=== PATIENT | female | born 1955 | race Asian ===

== ENCOUNTER 2020-03-16 12:16 | Inpatient (IN) | payer MEDICAID, OTHER, SELFPAY ==
[~2020-03-16] VITALS: Ht 154.9 cm; Wt 64.9 kg
[2020-03-16] MEDS ORDERED: methylPREDNISolone SOD SUCC 125 MG/2 ML VL IV ONE (12:45)
[2020-03-16] MEDS ORDERED: AZITHROMYCIN 500MG/ 250ML 250 ML IV ONE (13:15)
[2020-03-16] MEDS ORDERED: ASCORBIC ACID 500 MG TAB PO ONE (13:15)
[2020-03-16] MEDS ORDERED: CHOLECALCIFEROL (VITD3) 2,000 UNIT CAP/TAB PO ONE (13:15)
[2020-03-16 13:57] LABS: Basophils # (auto) 0 10 ^3/uL (0-0.2); Basophils % (auto) 0.2 % (0.0-2.0); Eosinophils # (auto) 0 10 ^3/uL (0-0.8); Eosinophils % (auto) 0.3 % (0.0-7.0); Hematocrit 42.7 % (36.0-46.0); Hemoglobin 14.7 g/dL (12.2-16.2); Lymphocytes # (auto) 0.6 10 ^3/uL (0.4-5.4); Lymphocytes % (auto) 5.1 % (10.0-50.0); Mean Corpuscular Hemoglobin 30.7 pg (28.0-32.0); Mean Corpuscular Hgb Conc. 34.4 g/dL (32.0-36.0); Mean Corpuscular Volume 89.2 fL (80.0-100.0); Monocytes # (auto) 0.8 10 ^3/uL (0-1.3); Monocytes % (auto) 7.1 % (0.0-12.0); Neutrophils # (auto) 9.7 10 ^3/uL (1.6-8.6); Neutrophils % (auto) 87.3 % (37.0-80.0); Platelet Count (auto) 243 10^3/uL (140-450); Red Blood Cells 4.79 10^6/uL (4.0-5.20); Red Cell Distribution Width 13.6 % (11.8-14.3); White Blood Cell 11.1 10^3/uL (4.4-10.8)
[2020-03-16] MEDS ORDERED: MORPHINE SULF INJ 2 MG/ML SYRINGE 1ML IV PRN ×3 (14:00→22:00)
[2020-03-16] MEDS ORDERED: NITROGLYCERIN 0.4 MG SL TAB SL PRN ×2 (14:00→22:00)
[2020-03-16] MEDS ORDERED: dilTIAZem 25 MG/5 ML VIAL IV ONE ×3 (14:00→18:15)
[2020-03-16 14:19] LABS: Alanine Aminotransferase 38 U/L (13-56); Albumin 2.5 g/dL (3.4-5.0); Anion Gap 7 (5-15); Blood Urea Nitrogen 7 mg/dL (7-18); Calcium 8.5 mg/dL (8.5-10.1); Carbon Dioxide 28 mmol/L (21-32); Chloride 100 mmol/L (98-107); Glucose 122 mg/dL (74-106); Potassium 3.2 mmol/L (3.5-5.1); Sodium 135 mmol/L (136-145)
[2020-03-16 14:21] LABS: Lactic Acid w/Reflex 2.2 mmol/L (0.4-2.0)
[2020-03-16 14:28] LABS: Alkaline Phosphatase 93 U/L (45-117); Aspartate Aminotransferase 45 U/L (15-37); BUN/Creatinine Ratio 8.8; Bilirubin, Total 2.1 mg/dL (0.2-1.0); GFR African American 93 mL/min; GFR Non-African American 77 mL/min; Total Protein 8.5 g/dL (6.4-8.2)
[2020-03-16] MEDS ORDERED: ATEN25TA PO (14:32)
[2020-03-16 14:42] LABS: CRP High Sensitivity > 19.0 mg/dL (< 0.3)
[2020-03-16] MEDS ORDERED: REMDESIVIR PER PHARMACY 0 ML IV SCH ×2 (15:30→22:00)
[2020-03-16] MEDS ORDERED: ADENOSINE 6 MG/2 ML INJ IV ONE ×2 (18:00→18:02)
[2020-03-16] MEDS ORDERED: METOPROLOL TARTRATE 1MG/1ML-5ML VIAL IV PRN ×2 (18:00)
[2020-03-16] MEDS ORDERED: MAGNESIUM SULFATE 1GM/100ML 100 ML IV ONE (18:15)
[2020-03-16] MEDS ORDERED: POTASSIUM CHLORIDE 40 MEQ, LIDOCAINE 1% (LOCAL ANESTH.) 4 ML in SODIUM CHL 0.9% 250 ML IV ONE (18:15)
[2020-03-16] MEDS ORDERED: ALBUMIN 25% 100 ML IV ONE (18:15)
[2020-03-16] MEDS ORDERED: dilTIAZem HCL 60 MG TAB PO ONE (18:15)
[2020-03-16] MEDS ORDERED: ENOXAPARIN SOD 80 MG/0.8ML SYRINGE SC ONE (18:15)
[2020-03-16] MEDS ORDERED: DexAMETHasone INJECTION 10 MG in D5W 5% 50 ML IV ONE (18:15)
[2020-03-16] MEDS ORDERED: IOHEXOL 350 MG/ML 100ML IJ ONE (18:53)
[2020-03-16] MEDS ORDERED: REMDESIVIR 200 MG in NS 210ml LOADING DOSE ADULT IV ONE (20:00)
[2020-03-16] MEDS ORDERED: ALUM & MAG HYDROX-SIMETH LIQ(MAALOX) 30 ML PO PRN (22:00)
[2020-03-16] MEDS ORDERED: ONDANSETRON HCL 4 MG/2 ML VIAL IV PRN (22:00)
[2020-03-16] MEDS ORDERED: LORazepam 0.5 MG TAB PO PRN (22:00)
[2020-03-16] MEDS ORDERED: DOCUSATE SOD 100 MG CAP PO PRN (22:00)
[2020-03-17] VITALS: BP 102/59
[2020-03-17 00:13] LABS: Basophils # (auto) 0 10 ^3/uL (0-0.2); Basophils % (auto) 0.1 % (0.0-2.0); Eosinophils # (auto) 0 10 ^3/uL (0-0.8); Hematocrit 38.3 % (36.0-46.0); Lymphocytes # (auto) 0.3 10 ^3/uL (0.4-5.4); Lymphocytes % (auto) 4.6 % (10.0-50.0); Mean Corpuscular Hemoglobin 30.8 pg (28.0-32.0); Mean Corpuscular Volume 90.5 fL (80.0-100.0); Monocytes # (auto) 0.3 10 ^3/uL (0-1.3); Monocytes % (auto) 3.8 % (0.0-12.0); Neutrophils # (auto) 6.4 10 ^3/uL (1.6-8.6); Neutrophils % (auto) 91.5 % (37.0-80.0); Platelet Count (auto) 196 10^3/uL (140-450); Red Blood Cells 4.24 10^6/uL (4.0-5.20); Red Cell Distribution Width 13.4 % (11.8-14.3)
[2020-03-17] MEDS: ALBUMIN 25% 100 ML IV SCH ×3 (00:41→17:07)
[2020-03-17] MEDS: SODIUM CHLORIDE 0.9% 1,000 ML IV SCH ×2 (00:44→14:40)
[2020-03-17 01:25] LABS: Albumin 2.2 g/dL (3.4-5.0); Calcium 8.2 mg/dL (8.5-10.1); Magnesium 2.3 mg/dL (1.6-2.6); Potassium 3.2 mmol/L (3.5-5.1)
[2020-03-17 01:37] LABS: Bilirubin, Total 1.1 mg/dL (0.2-1.0); Total Protein 7.2 g/dL (6.4-8.2)
[2020-03-17 02:53] LABS: CRP High Sensitivity 20.08 mg/dL (< 0.3)
[2020-03-17] MEDS: DOXYCYCLINE 100MG/250ML 250 ML IV SCH ×3 (02:55→21:21)
[2020-03-17 04:00] VITALS: BP 102/59
[2020-03-17] MEDS: FUROSEMIDE 20 MG/2 ML VIAL IV SCH ×2 (05:34→17:06)
[2020-03-17 06:56] LABS: Basophils # (auto) 0 10 ^3/uL (0-0.2); Eosinophils # (auto) 0 10 ^3/uL (0-0.8); Hematocrit 33.4 % (36.0-46.0); Hemoglobin 11.4 g/dL (12.2-16.2); Lymphocytes # (auto) 0.5 10 ^3/uL (0.4-5.4); Lymphocytes % (auto) 6.7 % (10.0-50.0); Mean Corpuscular Hemoglobin 30.5 pg (28.0-32.0); Mean Corpuscular Hgb Conc. 34.1 g/dL (32.0-36.0); Mean Corpuscular Volume 89.4 fL (80.0-100.0); Monocytes # (auto) 0.4 10 ^3/uL (0-1.3); Monocytes % (auto) 4.8 % (0.0-12.0); Neutrophils # (auto) 6.7 10 ^3/uL (1.6-8.6); Neutrophils % (auto) 88.5 % (37.0-80.0); Nucleated Red Blood Cells % 0.1 %; Platelet Count (auto) 194 10^3/uL (140-450); Red Blood Cells 3.73 10^6/uL (4.0-5.20); Red Cell Distribution Width 13.6 % (11.8-14.3); White Blood Cell 7.5 10^3/uL (4.4-10.8)
[2020-03-17 07:19] LABS: INR 1.03 (0.9-1.15); Partial Thromboplastin Time 29.9 sec (23.0-31.2)
[2020-03-17 07:22] LABS: Albumin 3.3 g/dL (3.4-5.0); Calcium 8.5 mg/dL (8.5-10.1); Magnesium 2.6 mg/dL (1.6-2.6); Potassium 3.4 mmol/L (3.5-5.1)
[2020-03-17 07:26] LABS: BUN/Creatinine Ratio 11.4; Bilirubin, Total 1.4 mg/dL (0.2-1.0); Phosphorus 1.4 mg/dL (2.5-4.90); Total Protein 7.6 g/dL (6.4-8.2)
[2020-03-17 08:00] VITALS: BP 124/70
[2020-03-17] MEDS: BUDESONIDE (INHALATION) 180 MCG IH IN SCH ×2 (10:00→19:41)
[2020-03-17] MEDS ORDERED: ENOXAPARIN SOD 80 MG/0.8ML SYRINGE SC SCH (10:00)
[2020-03-17] MEDS ORDERED: IVERMECTIN 3 MG TAB PO ONE (10:00)
[2020-03-17] MEDS: DexAMETHasone SOD PHOS 10MG/1ML VIAL INJ IV SCH (10:34)
[2020-03-17] MEDS: FAMOTIDINE (10MG/ML) 2ML VL IV SCH (10:35)
[2020-03-17] MEDS: ZINC SULFATE 220mg CAP or TAB PO SCH (10:35)
[2020-03-17] MEDS: CHOLECALCIFEROL (VITD3) 2,000 UNIT CAP/TAB PO SCH (10:36)
[2020-03-17] MEDS: METOPROLOL SUCCINATE XL 50 MG TAB PO SCH (10:36)
[2020-03-17] MEDS: ASCORBIC ACID 1,000 MG TAB PO SCH (10:36)
[2020-03-17] MEDS ORDERED: IOHEXOL 350 MG/ML 100ML IJ ONE (11:31)
[2020-03-17] MEDS ORDERED: POTASSIUM CHL 20 Meq TABLET PO ONE (12:45)
[2020-03-17] MEDS: REMDESIVIR 100mg 100 MG in SODIUM CHL 0.9% 230 ML IV SCH (15:17)
[2020-03-17 16:00] VITALS: BP 120/70
[2020-03-17] MEDS: ALBUTEROL SULF HFA 90MCG INH 200DOSE IN PRN (19:41)
[2020-03-17] MEDS: ENOXAPARIN SOD 60 MG/0.6 ML SYRINGE SC SCH (21:21)
[2020-03-18] VITALS: BP 118/72
[2020-03-18 05:43] LABS: Calcium 8.7 mg/dL (8.5-10.1); Potassium 3.6 mmol/L (3.5-5.1)
[2020-03-18 05:50] LABS: Albumin 3.2 g/dL (3.4-5.0); BUN/Creatinine Ratio 21.3; Bilirubin, Total 0.8 mg/dL (0.2-1.0); Total Protein 7.1 g/dL (6.4-8.2)
[2020-03-18] MEDS: FUROSEMIDE 20 MG/2 ML VIAL IV SCH ×2 (06:33→17:22)
[2020-03-18] MEDS: SODIUM CHLORIDE 0.9% 1,000 ML IV SCH (06:34)
[2020-03-18 08:00] VITALS: BP 127/67
[2020-03-18] MEDS: ALBUTEROL SULF HFA 90MCG INH 200DOSE IN PRN ×2 (08:30→19:58)
[2020-03-18] MEDS: BUDESONIDE (INHALATION) 180 MCG IH IN SCH ×2 (08:30→19:58)
[2020-03-18] MEDS: DOXYCYCLINE 100MG/250ML 250 ML IV SCH ×2 (09:24→21:50)
[2020-03-18] MEDS: ENOXAPARIN SOD 60 MG/0.6 ML SYRINGE SC SCH ×2 (09:25→21:50)
[2020-03-18] MEDS: ASCORBIC ACID 1,000 MG TAB PO SCH (09:25)
[2020-03-18] MEDS: ZINC SULFATE 220mg CAP or TAB PO SCH (09:25)
[2020-03-18] MEDS: METOPROLOL SUCCINATE XL 50 MG TAB PO SCH (09:26)
[2020-03-18] MEDS: CHOLECALCIFEROL (VITD3) 2,000 UNIT CAP/TAB PO SCH (09:28)
[2020-03-18] MEDS: DexAMETHasone SOD PHOS 10MG/1ML VIAL INJ IV SCH (09:28)
[2020-03-18] MEDS: FAMOTIDINE (10MG/ML) 2ML VL IV SCH (09:28)
[2020-03-18 14:06] LABS: Hematocrit 34.7 % (36.0-46.0); Hemoglobin 11.5 g/dL (12.2-16.2); Mean Corpuscular Hemoglobin 30.2 pg (28.0-32.0); Mean Corpuscular Hgb Conc. 33.3 g/dL (32.0-36.0); Mean Corpuscular Volume 90.7 fL (80.0-100.0); Platelet Count (auto) 291 10^3/uL (140-450); Red Blood Cells 3.82 10^6/uL (4.0-5.20); Red Cell Distribution Width 13.7 % (11.8-14.3); White Blood Cell 15.7 10^3/uL (4.4-10.8)
[2020-03-18 14:10] LABS: Basophils % (manual) 0 (0.0-2.0); Blast Cells 0; Eosinophils % (manual) 0 (0-7); Metamyelocytes % 0; Myelocytes % 0; Promyelocytes % 0; Reactive Lymphocytes 0
[2020-03-18] MEDS: REMDESIVIR 100mg 100 MG in SODIUM CHL 0.9% 230 ML IV SCH (14:49)
[2020-03-18 15:09] LABS: Band Neutrophils % (manual) 26; Lymphocytes % (manual) 9 (10.0-50.0); Monocytes % (manual) 2 (0-12)
[2020-03-18 16:00] VITALS: BP 142/82
[2020-03-19] VITALS: BP 134/74
[2020-03-19 05:31] LABS: Basophils # (auto) 0 10 ^3/uL (0-0.2); Basophils % (auto) 0.1 % (0.0-2.0); Eosinophils # (auto) 0 10 ^3/uL (0-0.8); Eosinophils % (auto) 0.3 % (0.0-7.0); Hematocrit 37.9 % (36.0-46.0); Hemoglobin 12.8 g/dL (12.2-16.2); Lymphocytes # (auto) 1.2 10 ^3/uL (0.4-5.4); Lymphocytes % (auto) 9.7 % (10.0-50.0); Mean Corpuscular Hemoglobin 30.3 pg (28.0-32.0); Mean Corpuscular Hgb Conc. 33.9 g/dL (32.0-36.0); Mean Corpuscular Volume 89.5 fL (80.0-100.0); Monocytes # (auto) 1.3 10 ^3/uL (0-1.3); Monocytes % (auto) 10.5 % (0.0-12.0); Neutrophils # (auto) 9.5 10 ^3/uL (1.6-8.6); Neutrophils % (auto) 79.4 % (37.0-80.0); Nucleated Red Blood Cells % 0.1 %; Platelet Count (auto) 342 10^3/uL (140-450); Red Blood Cells 4.23 10^6/uL (4.0-5.20); Red Cell Distribution Width 13.6 % (11.8-14.3); White Blood Cell 11.9 10^3/uL (4.4-10.8)
[2020-03-19 05:58] LABS: Potassium 3.1 mmol/L (3.5-5.1)
[2020-03-19 06:10] LABS: Albumin 3.1 g/dL (3.4-5.0); BUN/Creatinine Ratio 23.9; Bilirubin, Total 0.8 mg/dL (0.2-1.0); Calcium 8.6 mg/dL (8.5-10.1); Total Protein 7.4 g/dL (6.4-8.2)
[2020-03-19] MEDS: FUROSEMIDE 20 MG/2 ML VIAL IV SCH (06:10)
[2020-03-19] MEDS: ALBUTEROL SULF HFA 90MCG INH 200DOSE IN PRN ×2 (07:56→20:02)
[2020-03-19] MEDS: BUDESONIDE (INHALATION) 180 MCG IH IN SCH ×2 (07:56→20:01)
[2020-03-19 08:00] VITALS: BP 148/77
[2020-03-19] MEDS: DOXYCYCLINE 100MG/250ML 250 ML IV SCH ×2 (09:52→21:24)
[2020-03-19] MEDS: FAMOTIDINE (10MG/ML) 2ML VL IV SCH (09:52)
[2020-03-19] MEDS: DexAMETHasone SOD PHOS 10MG/1ML VIAL INJ IV SCH (09:52)
[2020-03-19] MEDS: ZINC SULFATE 220mg CAP or TAB PO SCH (09:52)
[2020-03-19] MEDS: METOPROLOL SUCCINATE XL 50 MG TAB PO SCH (09:53)
[2020-03-19] MEDS: ASCORBIC ACID 1,000 MG TAB PO SCH (09:53)
[2020-03-19] MEDS: CHOLECALCIFEROL (VITD3) 2,000 UNIT CAP/TAB PO SCH (09:55)
[2020-03-19] MEDS: ENOXAPARIN SOD 60 MG/0.6 ML SYRINGE SC SCH ×2 (09:55→21:24)
[2020-03-19] MEDS: POTASSIUM CHL 20MEQ/100ML 100 ML IV SCH ×2 (14:20→16:26)
[2020-03-19 16:00] VITALS: BP 132/78
[2020-03-19] MEDS: SODIUM CHLORIDE 0.9% 1,000 ML IV SCH ×2 (17:55)
[2020-03-19] MEDS: REMDESIVIR 100mg 100 MG in SODIUM CHL 0.9% 230 ML IV SCH (17:55)
[2020-03-19] MEDS: FUROSEMIDE 20 MG TAB PO SCH (17:57)
[2020-03-20] VITALS: BP 98/68
[2020-03-20] MEDS: FUROSEMIDE 20 MG TAB PO SCH ×3 (05:58→17:23)
[2020-03-20] MEDS: SODIUM CHLORIDE 0.9% 1,000 ML IV SCH (06:25)
[2020-03-20 06:55] LABS: INR 1.2 (0.9-1.15); Potassium 3.4 mmol/L (3.5-5.1)
[2020-03-20 07:03] LABS: Basophils # (auto) 0 10 ^3/uL (0-0.2); Basophils % (auto) 0.1 % (0.0-2.0); Eosinophils # (auto) 0 10 ^3/uL (0-0.8); Hematocrit 40.1 % (36.0-46.0); Hemoglobin 13.5 g/dL (12.2-16.2); Lymphocytes # (auto) 1.2 10 ^3/uL (0.4-5.4); Lymphocytes % (auto) 10.5 % (10.0-50.0); Mean Corpuscular Hgb Conc. 33.6 g/dL (32.0-36.0); Mean Corpuscular Volume 89.4 fL (80.0-100.0); Monocytes # (auto) 1.2 10 ^3/uL (0-1.3); Monocytes % (auto) 10.3 % (0.0-12.0); Neutrophils # (auto) 9.3 10 ^3/uL (1.6-8.6); Neutrophils % (auto) 79.1 % (37.0-80.0); Platelet Count (auto) 405 10^3/uL (140-450); Red Blood Cells 4.49 10^6/uL (4.0-5.20); Red Cell Distribution Width 13.8 % (11.8-14.3); White Blood Cell 11.8 10^3/uL (4.4-10.8)
[2020-03-20 07:04] LABS: BUN/Creatinine Ratio 25.7; Bilirubin, Total 0.9 mg/dL (0.2-1.0); Calcium 9.1 mg/dL (8.5-10.1); Magnesium 2.3 mg/dL (1.6-2.6); Phosphorus 4.3 mg/dL (2.5-4.90); Total Protein 7.3 g/dL (6.4-8.2)
[2020-03-20 08:00] VITALS: BP 140/76
[2020-03-20] MEDS: BUDESONIDE (INHALATION) 180 MCG IH IN SCH ×2 (09:25→19:20)
[2020-03-20] MEDS: ZINC SULFATE 220mg CAP or TAB PO SCH (09:47)
[2020-03-20] MEDS: DexAMETHasone SOD PHOS 10MG/1ML VIAL INJ IV SCH (09:47)
[2020-03-20] MEDS: DOXYCYCLINE 100MG/250ML 250 ML IV SCH ×2 (09:47→21:51)
[2020-03-20] MEDS: FAMOTIDINE (10MG/ML) 2ML VL IV SCH ×2 (09:47→21:51)
[2020-03-20] MEDS: ENOXAPARIN SOD 60 MG/0.6 ML SYRINGE SC SCH (09:48)
[2020-03-20] MEDS: ASCORBIC ACID 1,000 MG TAB PO SCH (09:48)
[2020-03-20] MEDS: POTASSIUM CHL 20 Meq TABLET PO SCH (09:48)
[2020-03-20] MEDS: CHOLECALCIFEROL (VITD3) 2,000 UNIT CAP/TAB PO SCH (09:48)
[2020-03-20] MEDS: METOPROLOL SUCCINATE XL 50 MG TAB PO SCH (09:52)
[2020-03-20] MEDS ORDERED: AMIODARONE HCL 150 MG in D5W 5% 100 ML IV ONE (10:00)
[2020-03-20] MEDS ORDERED: AMIODARONE 450mg/250ml AE 250 ML IV SCH (10:15)
[2020-03-20] MEDS ORDERED: POTASSIUM CHL 20 Meq TABLET PO ONE (10:15)
[2020-03-20] MEDS: ALBUTEROL SULF HFA 90MCG INH 200DOSE IN PRN ×2 (11:05→19:20)
[2020-03-20] MEDS ORDERED: POTASSIUM CHL 20MEQ/100ML 100 ML IV ONE (14:15)
[2020-03-20] MEDS: REMDESIVIR 100mg 100 MG in SODIUM CHL 0.9% 230 ML IV SCH (15:00)
[2020-03-20 16:00] VITALS: BP 118/88
[2020-03-20] MEDS: AMIODARONE 450mg/250ml AE 250 ML IV SCH (16:15)
[2020-03-20] MEDS: APIXABAN 5 MG TAB PO SCH (21:51)
[2020-03-21] VITALS: BP 118/71
[2020-03-21] MEDS: AMIODARONE 450mg/250ml AE 250 ML IV SCH (02:20)
[2020-03-21] MEDS: FUROSEMIDE 20 MG TAB PO SCH ×2 (05:32→17:29)
[2020-03-21 06:27] LABS: Basophils # (auto) 0 10 ^3/uL (0-0.2); Basophils % (auto) 0.3 % (0.0-2.0); Eosinophils # (auto) 0 10 ^3/uL (0-0.8); Eosinophils % (auto) 0.1 % (0.0-7.0); Monocytes # (auto) 1.6 10 ^3/uL (0-1.3); Monocytes % (auto) 10.9 % (0.0-12.0); Platelet Count (auto) 463 10^3/uL (140-450); White Blood Cell 14.7 10^3/uL (4.4-10.8)
[2020-03-21 06:29] LABS: Hematocrit 40.2 % (36.0-46.0); Hemoglobin 13.6 g/dL (12.2-16.2); Lymphocytes # (auto) 1.3 10 ^3/uL (0.4-5.4); Lymphocytes % (auto) 8.9 % (10.0-50.0); Mean Corpuscular Hemoglobin 30.5 pg (28.0-32.0); Mean Corpuscular Hgb Conc. 33.9 g/dL (32.0-36.0); Mean Corpuscular Volume 89.8 fL (80.0-100.0); Neutrophils # (auto) 11.7 10 ^3/uL (1.6-8.6); Neutrophils % (auto) 79.8 % (37.0-80.0); Red Blood Cells 4.48 10^6/uL (4.0-5.20); Red Cell Distribution Width 13.7 % (11.8-14.3)
[2020-03-21 06:40] LABS: INR 1.16 (0.9-1.15)
[2020-03-21 06:46] LABS: Calcium 8.9 mg/dL (8.5-10.1); Magnesium 2.4 mg/dL (1.6-2.6); Potassium 3.9 mmol/L (3.5-5.1)
[2020-03-21 06:51] LABS: BUN/Creatinine Ratio 25.6; Bilirubin, Total 0.8 mg/dL (0.2-1.0); Phosphorus 4.7 mg/dL (2.5-4.90); Total Protein 7.5 g/dL (6.4-8.2)
[2020-03-21] MEDS: BUDESONIDE (INHALATION) 180 MCG IH IN SCH ×2 (07:50→19:14)
[2020-03-21] MEDS: ALBUTEROL SULF HFA 90MCG INH 200DOSE IN PRN ×2 (07:50→19:15)
[2020-03-21 08:00] VITALS: BP 112/69
[2020-03-21] MEDS: METOPROLOL SUCCINATE XL 50 MG TAB PO SCH (10:00)
[2020-03-21] MEDS: DOXYCYCLINE 100MG/250ML 250 ML IV SCH (10:00)
[2020-03-21] MEDS: FAMOTIDINE (10MG/ML) 2ML VL IV SCH ×2 (10:00→22:31)
[2020-03-21] MEDS: DexAMETHasone SOD PHOS 10MG/1ML VIAL INJ IV SCH (11:32)
[2020-03-21] MEDS: APIXABAN 5 MG TAB PO SCH ×2 (11:33→22:31)
[2020-03-21] MEDS: POTASSIUM CHL 20 Meq TABLET PO SCH (11:33)
[2020-03-21] MEDS: ZINC SULFATE 220mg CAP or TAB PO SCH (11:34)
[2020-03-21] MEDS: ASCORBIC ACID 1,000 MG TAB PO SCH (11:34)
[2020-03-21] MEDS: CHOLECALCIFEROL (VITD3) 2,000 UNIT CAP/TAB PO SCH (11:34)
[2020-03-21 16:00] VITALS: BP 117/51
[2020-03-21] MEDS ORDERED: AMIODARONE HCL 200 MG TAB PO ONE (16:15)
[2020-03-21] MEDS ORDERED: REMDESIVIR PER PHARMACY 0 ML IV SCH (21:00)
[2020-03-21] MEDS: AMIODARONE HCL 200 MG TAB PO SCH (22:31)
[2020-03-22] VITALS: BP 114/54
[2020-03-22] MEDS: FUROSEMIDE 20 MG TAB PO SCH ×2 (05:42→17:30)
[2020-03-22] MEDS: BUDESONIDE (INHALATION) 180 MCG IH IN SCH ×2 (06:55→20:04)
[2020-03-22 08:00] VITALS: BP 117/61
[2020-03-22] MEDS: ASCORBIC ACID 1,000 MG TAB PO SCH (09:37)
[2020-03-22] MEDS: CHOLECALCIFEROL (VITD3) 2,000 UNIT CAP/TAB PO SCH (09:37)
[2020-03-22] MEDS: APIXABAN 5 MG TAB PO SCH ×2 (09:38→22:14)
[2020-03-22] MEDS: AMIODARONE HCL 200 MG TAB PO SCH ×2 (09:38→22:14)
[2020-03-22] MEDS: POTASSIUM CHL 20 Meq TABLET PO SCH (09:38)
[2020-03-22] MEDS: METOPROLOL SUCCINATE XL 50 MG TAB PO SCH (09:38)
[2020-03-22] MEDS: ZINC SULFATE 220mg CAP or TAB PO SCH (09:38)
[2020-03-22] MEDS: DexAMETHasone SOD PHOS 10MG/1ML VIAL INJ IV SCH (09:39)
[2020-03-22] MEDS: FAMOTIDINE (10MG/ML) 2ML VL IV SCH ×2 (09:39→22:14)
[2020-03-22 16:00] VITALS: BP 112/67
[2020-03-22] MEDS: ALBUTEROL SULF HFA 90MCG INH 200DOSE IN PRN (20:56)
[2020-03-23] VITALS: BP 110/72
[2020-03-23] MEDS: FUROSEMIDE 20 MG TAB PO SCH ×2 (06:28→18:00)
[2020-03-23] MEDS: ALBUTEROL SULF HFA 90MCG INH 200DOSE IN PRN (06:55)
[2020-03-23] MEDS: BUDESONIDE (INHALATION) 180 MCG IH IN SCH (06:55)
[2020-03-23 07:54] VITALS: BP 116/73
[2020-03-23] MEDS: METOPROLOL SUCCINATE XL 50 MG TAB PO SCH (10:42)
[2020-03-23] MEDS: APIXABAN 5 MG TAB PO SCH (10:43)
[2020-03-23] MEDS: POTASSIUM CHL 20 Meq TABLET PO SCH (10:43)
[2020-03-23] MEDS: AMIODARONE HCL 200 MG TAB PO SCH (10:44)
[2020-03-23] MEDS: ZINC SULFATE 220mg CAP or TAB PO SCH (10:44)
[2020-03-23] MEDS: ASCORBIC ACID 1,000 MG TAB PO SCH (10:44)
[2020-03-23] MEDS: CHOLECALCIFEROL (VITD3) 2,000 UNIT CAP/TAB PO SCH (10:45)
[2020-03-23] MEDS: DexAMETHasone SOD PHOS 10MG/1ML VIAL INJ IV SCH (10:49)
[2020-03-23] MEDS: FAMOTIDINE (10MG/ML) 2ML VL IV SCH (10:58)
[2020-03-23] MEDS ORDERED: CHOL1CAP47 PO (11:57)
[2020-03-23] MEDS ORDERED: AMIO200T33 PO (11:57)
[2020-03-23] MEDS ORDERED: APIX5TAB PO (11:57)
[2020-03-23] MEDS ORDERED: METO-6 PO (12:00)
[2020-03-23] MEDS ORDERED: FURO20TA3 PO (12:03)
[2020-03-23] MEDS ORDERED: POTA1TAB61 PO (12:03)
[2020-03-23 13:14] VITALS: BP 116/73
[2020-03-23 16:10] VITALS: BP 114/52
== END 2020-03-23 18:00 | disposition home or self-care (01) | DRG 720 ==
LOC: ER 12:16 → TELE 12:17 → TELE-WESTW 19:56
PROVIDERS: ADMIT Hospitalist; ATTEND Internal Medicine Nephrology
PROC: XW033E5 Introduction of Remdesivir Anti-infective into Peripheral Vein, Percutaneous Approach, New Technology Group 5 (ICD-10-PCS; principal; 2020-03-16)
DX: A41.89 Other specified sepsis (principal); E43 Unspecified severe protein-calorie malnutrition; I50.33 Acute on chronic diastolic (congestive) heart failure; J12.82 Pneumonia due to coronavirus disease 2019; J96.01 Acute respiratory failure with hypoxia; U07.1 COVID-19; D68.59 Other primary thrombophilia; E87.1 Hypo-osmolality and hyponatremia; I47.1 Supraventricular tachycardia; I48.92 Unspecified atrial flutter; R65.20 Severe sepsis without septic shock; E66.9 Obesity, unspecified; E78.5 Hyperlipidemia, unspecified; E87.6 Hypokalemia; G20 Parkinson's disease; I11.0 Hypertensive heart disease with heart failure; I48.91 Unspecified atrial fibrillation; R73.9 Hyperglycemia, unspecified; I27.21 Secondary pulmonary arterial hypertension; Z82.5 Family history of asthma and other chronic lower respiratory diseases; Z82.0 Family history of epilepsy and other diseases of the nervous system; Z68.36 Body mass index [BMI] 36.0-36.9, adult; Z88.1 Allergy status to other antibiotic agents; Z88.5 Allergy status to narcotic agent
CPT/HCPCS: 36415; 36600; 71045; 71275; 80053; 80061; 82306; 82728; 82805; 83036; 83605; 83615; 83735; 83880; 84100; 84443; 84484; 85007; 85025; 85027; 85379; 85610; 85730; 86141; 86850; 86900; 86901; 87040; 87426; 93005; 93306; 93970; 94640; 96365; 96367; 96372; 96375; 99291; G0378; J1100; J2001; J3480; J3490; J7060; P9047